=== PATIENT | female | born 1975 | race Caucasian/White ===

== ENCOUNTER 2017-10-17 10:38 | Emergency (ER) | payer OTHER ==
[~2017-10-17] VITALS: Ht 162.6 cm; Wt 61.5 kg
[~2017-10-17 10:38] MED LIST: AUGM875T3 PO; AZEL1SPR2 EACH NARE; FLUT50SP EACH NARE; MECL-62 PO
[2017-10-17 10:51] VITALS: BP 144/65; PULSE 65; RESP 16; TEMP 98; O2SAT 100
--- NOTE | 2017-10-17 11:23 | RADRPT ---
EXAM DATE: 10/17/2017 11:20 AM EDT AGE/SEX: 42 years / Female INDICATIONS: Left medial foot pain after fall. CLINICAL DATA: This is the patient's initial encounter. Patient reports that signs and symptoms have been present for 1 day and indicates a pain score of 7/10. MEDICAL/SURGICAL HISTORY: None. None. COMPARISON: No prior [facility] exams available for comparison. FINDINGS: Bony structures are intact and in normal alignment. Osseous density is normal. Soft tissues are unre markable. No radiopaque foreign bodies seen. CONCLUSION: Negative for acute process. Electronically signed by: Ok Swenson MD 10/17/2017 11:21 AM EDT
--- NOTE | 2017-10-17 11:42 | PD ---
HPI Chief Complaint: Injury Time Seen by Provider: 10:59 Travel History International Travel<30 days: No Contact w/Intl Traveler<30days: No Traveled to known affect area: No History of Present Illness HPI The patient was seen and examined in the presence of the nurse. This patient was climbing a rock climbing wall at the gym and strained her left foot. She has pain with ambulation. Duration 4 hours. PFSH Past Medical History Diminished Hearing: No Immunizations Current: Yes ?: Not : 3 Para: 3 Past Surgical History Eye Surgery: Yes (LEFT EYE LAZeR SURGERY) Other Surgery: Yes (BILAT BREAST AUGMENTATION) Social History Alcohol Use: Yes (WEEKLY) Tobacco Use: No Substance Use: No Allergies-Medications (Allergen,Severity, Reaction): Coded Allergies: No Known Allergies (Unverified , 03/04/17) Reported Meds & Prescriptions Reported Meds & Active Scripts Active Fluticasone Nasal [place] 50 Mcg/Act Naspr 50 Mcg EACH NARE BID 50 mcg/spray Azelastine Nasal Eminence (Azelastine HCl) 0.1% Eminence 2 Eminence EACH NARE BID Augmentin (Amoxicillin-Clavulanate) 875-125 Mg Tab 1 Tab PO BID Reported Meclizine (Meclizine HCl) 25 Mg Tab 25 Mg PO DIRECTED PRN Review of Systems General / Constitutional: No: Fever HENT: No: Headaches Cardiovascular: No: Chest Pain or Discomfort Physical Exam Narrative SKIN: Focused skin assessment reveals no rash or ulcers. Skin is warm and dry. Palpation shows no induration or nodules. Psych: Normal mood and affect. Normal insight and judgment. Left foot: No bruising or deformity. There is tenderness over the dorsum of the foot. No malleoli tenderness. Data Data Last Documented VS Vital Signs Date Time Temp Pulse Resp B/P (MAP) Pulse Ox O2 Delivery O2 Flow Rate FiO2 10/17/17 10:51 98.0 65 16 144/65 (91) 100 Orders Orders Foot, Complete ([id number]) (10/17/17 ) [facility] Medical Decision Making Medical Screen Exam Complete: Yes Emergency Medical Condition: Yes Medical Record Reviewed: Yes Differential Diagnosis Fracture, contusion, strain Narrative Course I have reviewed the patient's electronic medical record. I reviewed x-rays of her left foot which are normal. Presentation consistent with a soft tissue strain and supportive care discussed Diagnosis Primary Impression: Soft tissue injury of left foot Qualified Codes: S99.922A - Unspecified injury of left foot, initial encounter Additional Instructions: The patient was advised to follow up with their physician and return if they worsen. Med/Other Pt SpecificInfo: Other Disposition: 01 DISCHARGE HOME Condition: Stable Raudel Wade MD Oct 17, 2017 11:42
== END 2017-10-17 12:13 | disposition home or self-care (01) ==
LOC: NEPD 10:38
DX: S99.922A Unspecified injury of left foot, initial encounter (principal); Y93.31 Activity, mountain climbing, rock climbing and wall climbing; Y92.39 Other specified sports and athletic area as the place of occurrence of the external cause
CPT/HCPCS: 73630; 99283